=== PATIENT | female | born 1970 | race Caucasian/White ===

== ENCOUNTER 2017-02-27 21:19 | Emergency (ER) | payer OTHER ==
[2017-02-27 23:44] LABS: CALCIUM 8.9 mg/dL (8.5-10.1); CARBON DIOXIDE 29.6 mmol/L (21-32); CHLORIDE SERUM 101 mmol/L (98-107); GFR1 > 60 mL/min; GLUCOSE SERUM 155 mg/dL (74-106); POTASSIUM SERUM 3.8 mmol/L (3.5-5.1); SODIUM SERUM 137 mmol/L (136-145)
[2017-02-27 23:46] LABS: BASOPHIL % 0.2 % (0-2); PLATELET COUNT 275 x10^3mcL (130-400); RED CELL DISTRIBUTION WIDTH 13.4 % (11.5-14.5)
[2017-02-27 23:48] LABS: ALBUMIN 3.6 g/dL (3.4-5.0); ALKALINE PHOSPHATASE 98 U/L (46-116); ALT/SGPT 68 U/L (14-59); AST/SGOT 56 U/L (15-37); MAGNESIUM 1.9 mg/dL (1.8-2.4); TOTAL PROTEIN, SERUM 7.8 g/dL (6.4-8.2)
[2017-02-27 23:51] LABS: CHOLESTEROL 221 mg/dL (<200)
[2017-02-27 23:55] LABS: microscopic required? YES; urine erythrocyte 2+ (NEGATIVE)
[2017-02-28 01:25] VITALS: BP 105/66
== END 2017-02-28 01:25 | disposition home or self-care (01) ==
LOC: ED 21:19
PROVIDERS: Emergency Medicine
DX: R42 Dizziness and giddiness (principal); E03.9 Hypothyroidism, unspecified; E78.00 Pure hypercholesterolemia, unspecified; E66.01 Morbid (severe) obesity due to excess calories; Z88.0 Allergy status to penicillin; Z88.2 Allergy status to sulfonamides
CPT/HCPCS: 82962; 83880; J2550; J7030; J8597